=== PATIENT | male | born 1985 | race Caucasian/White ===

== ENCOUNTER 2018-07-27 19:20 | Emergency (ER) | payer OTHER ==
[2018-07-27 19:41] VITALS: BP 143/94
[2018-07-27] MEDS ORDERED: Triamcinolone Acetonide* 40 MG/ML 1 ML VIAL ONE (19:57)
--- NOTE | 2018-07-27 20:05 | UC ---
Skin Complaint HPI - HPI Summary HPI Summary: 33 yo male with enlarging cyst on abd wall first noted a month or two ago now red and tender no hx MRSA - History of Current Complaint Chief Complaint: UCSkin Time Seen by Provider: 07/27/18 19:32 Stated Complaint: SKIN COMPLAINT Hx Obtained From: Patient Onset/Duration: Gradual Onset, Lasting Weeks, Worse Since - x days Current Severity: Mild Pain Intensity: 2 Pain Scale Used: 0-10 Numeric Location: Discrete Character: Swelling, Pain, Redness, Raised Aggravating Factor(s): Touch Associated Signs & Symptoms: Positive: Negative Related History: Trauma - Allergy/Home Medications Allergies/Adverse Reactions: Allergies Allergy/AdvReac Type Severity Reaction Status Date / Time No Known Allergies Allergy Verified 07/27/18 19:41 Home Medications: Home Medications Omeprazole 40 mg PO DAILY 07/27/18 [History Confirmed 07/27/18] PMH/Surg Hx/FS Hx/Imm Hx Previously Healthy: Yes - Surgical History Surgical History: None - Family History Known Family History: Positive: Hypertension - Social History Alcohol Use: None Substance Use Type: Marijuana Substance Use Comment - Amount & Last Used: yesterday Smoking Status (MU): Heavy Every Day Tobacco Smoker Type: Cigarettes Amount Used/How Often: 1/2 pack per day Length of Time of Smoking/Using Tobacco: 12 years Review of Systems All Other Systems Reviewed And Are Negative: Yes Constitutional: Positive: Negative Skin: Positive: Negative Eyes: Positive: Negative ENT: Positive: Negative Respiratory: Positive: Negative Cardiovascular: Positive: Negative Gastrointestinal: Positive: Negative Genitourinary: Positive: Negative Motor: Positive: Negative Neurovascular: Positive: Negative Musculoskeletal: Positive: Negative Neurological: Positive: Negative Psychological: Positive: Negative Physical Exam Triage Information Reviewed: Yes Appearance: Well-Appearing, No Pain Distress, Well-Nourished Vital Signs: Initial Vital Signs Temp 98.4 F 07/27/18 19:32 Pulse 69 07/27/18 19:32 Resp 18 07/27/18 19:32 BP 143/94 07/27/18 19:32 Pulse Ox 98 07/27/18 19:32 Vital Signs Reviewed: Yes Eyes: Positive: Conjunctiva Clear ENT: Positive: Hearing grossly normal. Negative: Nasal congestion, Nasal drainage, Trismus, Muffled voice, Hoarse voice Neck: Positive: Supple, Nontender, No Lymphadenopathy Respiratory: Positive: Lungs clear, Normal breath sounds, No respiratory distress Cardiovascular: Positive: RRR, No Murmur Abdomen Description: Positive: Nontender, No Organomegaly. Negative: CVA Tenderness (R), CVA Tenderness (L) Bowel Sounds: Positive: Present Neurological: Positive: Alert Psychological Exam: Normal Skin Exam: Other - see image Images Front/Back of Body, Lg ([place]): 1 - about 1.5 x 2 cm cystic/mobile lesion with 3 x 4 cm of overlying erythema, not flutuant Course/Dx - Course Course Of Treatment: given 10 mg of triamcinalone intra lesionally tolerated procedure well - Diagnoses Provider Diagnosis: Sebaceous cyst Discharge - Sign-Out/Discharge Documenting (check all that apply): Patient Departure All imaging exams completed and their final reports reviewed: No Studies - Discharge Plan Condition: Stable Disposition: HOME Prescriptions: Cephalexin CAP* [Keflex CAP*] 500 mg PO QID #28 cap Patient Education Materials: Epidermal Inclusion Cysts (ED) Referrals: Tania Vargas NP [Primary Care Provider] - As Soon As Possible Additional Instructions: heat you had a steroid injection recheck in 2 days if not improved see your provider next week - Billing Disposition and Condition Condition: STABLE Disposition: Home
== END 2018-07-27 20:30 | disposition home or self-care (01) ==
LOC: UCCORT 19:20
DX: L72.3 Sebaceous cyst (principal); F17.210 Nicotine dependence, cigarettes, uncomplicated
CPT/HCPCS: 99202; G0463; J3301

== ENCOUNTER 2018-09-05 19:23 | Emergency (ER) | payer OTHER ==
--- NOTE | 2018-09-05 19:32 | UC ---
Skin Complaint HPI - HPI Summary HPI Summary: 33 yo male presents with possible infection to surgical wound. He tells me that on 08/29 he had a cyst removed from the soft tissue of his abdomen. Internal sutures and glue was done for closure. Today pt noticed some discolored drainage on his shirt and looked at the site - noticed the superior part of the incision was open. He called his surgeon and his surgeon advised him to apply silvadene cream and apply a bandage. He made an appt for the pt this ( 2 days). Pt is here concerned it is infected. He does have pain to the area. Denies fever or chills. No hx of MRSA. - History of Current Complaint Time Seen by Provider: 09/05/18 19:31 Stated Complaint: INCISION CONCERN Hx Obtained From: Patient Onset/Duration: Sudden Onset Onset Severity: Moderate Current Severity: Moderate Pain Intensity: 5 Pain Scale Used: 0-10 Numeric - Allergy/Home Medications Allergies/Adverse Reactions: Allergies Allergy/AdvReac Type Severity Reaction Status Date / Time No Known Allergies Allergy Verified 09/05/18 19:33 PMH/Surg Hx/FS Hx/Imm Hx GI/ History: Gastroesophageal Reflux - Surgical History Surgical History: None - Family History Known Family History: Positive: Hypertension - Social History Occupation: Employed Full-time Lives: With Family Alcohol Use: None Substance Use Type: Marijuana Substance Use Comment - Amount & Last Used: yesterday Smoking Status (MU): Heavy Every Day Tobacco Smoker Type: Cigarettes Amount Used/How Often: 1/2 pack per day Length of Time of Smoking/Using Tobacco: 12 years Review of Systems All Other Systems Reviewed And Are Negative: Yes Constitutional: Positive: Negative Skin: Positive: Other - abdominal incision ?infection Respiratory: Positive: Negative Cardiovascular: Positive: Negative Neurological: Positive: Negative Psychological: Positive: Negative Physical Exam - Summary Physical Exam Summary: GENERAL: NAD. WDWN. No pain distress. SKIN: Right side of abdomen there is a 2.0cm vertical surgical incision with faint surrounding erythema. The superior 1.0cm of the incision is open with scant yellow/brown discharge. The inferior 1.0cm of the incision remains closed , but has some yellow/brown crusting. Area is tender to palpation. No streaking or surrounding abscess appreciated. CHEST: No accessory muscle use. Breathing comfortably and in no distress. CV: Pulses intact. Cap refill <2seconds NEURO: Alert. PSYCH: Age appropriate behavior. Triage Information Reviewed: Yes Vital Signs: Vital Signs: Temp Pulse Resp BP Pulse Ox 98.1 F 86 16 150/94 100 09/05/18 19:34 09/05/18 19:34 09/05/18 19:34 09/05/18 19:34 09/05/18 19:34 Vital Signs Reviewed: Yes Course/Dx - Course Course Of Treatment: A culture of the wound was obtained and will be sent. He is feeling well, has had no fevers, and there is no indication of surrounding or spreading infection. The infection appears localized to the small surgical site/incision. The wound was bandaged with an ABD pad. Will place pt on keflex for infection and have him keep the dressing intact until his appt in 2 days with his surgeon for a recheck. - Diagnoses Provider Diagnosis: Surgical site infection, Abdominal wound dehiscence Discharge - Sign-Out/Discharge Documenting (check all that apply): Patient Departure All imaging exams completed and their final reports reviewed: No Studies - Discharge Plan Condition: Stable Disposition: HOME Prescriptions: Cephalexin CAP* [Keflex CAP*] 500 mg PO TID #21 cap Patient Education Materials: Surgical Site Infections (ED) Referrals: Tania Vargas NP [Primary Care Provider] - Additional Instructions: If you develop a fever, shortness of breath, chest pain, new or worsening symptoms - please call your PCP or go to the ED immediately. Your blood pressure was high at todays visit. Please see your primary provider within 4 weeks for recheck and re-evaluation. Please take your antibiotic as prescribed Keep the dressing clean, dry, and intact until your follow up on with your surgeon - Billing Disposition and Condition Condition: STABLE Disposition: Home - Attestation Statements Provider Attestation: I was available for consult. This patient was seen by the YOUNG. The patient was not presented to, seen by, or examined by me. -Brennon
[2018-09-05 19:37] VITALS: BP 150/94
== END 2018-09-05 20:15 | disposition home or self-care (01) ==
LOC: UCCORT 19:23
DX: T81.41XA Infection following a procedure, superficial incisional surgical site, initial encounter (principal); T81.31XA Disruption of external operation (surgical) wound, not elsewhere classified, initial encounter; F17.210 Nicotine dependence, cigarettes, uncomplicated
CPT/HCPCS: 87070; 87076; 87205; 99212; G0463